=== PATIENT | female | born 1985 | race Caucasian/White ===

== ENCOUNTER → 2016-07-12 | Outpatient (CLI) | payer OTHER, BC ==
[~2016-07-12] MED LIST: ASPIRIN81 MG PO; FOLIC ACID1 MG PO; METHOTREXATE2.5 MG PO; PLAQUENIL200 MG PO
== END | disposition short-term general hospital (02) ==
LOC: CLRHEU 11:08
DX: L93.0 Discoid lupus erythematosus (principal)